=== PATIENT | female | born 1990 | race Caucasian/White ===

== ENCOUNTER 2019-10-14 22:42 | Emergency (ER) | payer OTHER ==
[~2019-10-14] VITALS: Ht 162.6 cm; Wt 50.0 kg
[2019-10-15 00:23] VITALS: BP 133/72
== END 2019-10-15 00:25 | disposition home or self-care (01) ==
LOC: ER 22:42
DX: O26.892 Other specified pregnancy related conditions, second trimester (principal); R10.84 Generalized abdominal pain; Z3A.16 16 weeks gestation of pregnancy
CPT/HCPCS: 36415; 76805; 84702; 86900; 86901; 99284